=== PATIENT | female | born 1950 | race Caucasian/White ===

== ENCOUNTER 2017-05-17 12:27 | Emergency (ER) | payer OTHER, MEDICARE ==
[2017-05-17 12:52] VITALS: BP 128/75
[2017-05-17 13:45] LABS: APPEARANCE,URINE SLIGHTLY-CLOUDY; BILIRUBIN,URINE NEGATIVE (NEGATIVE); GLUCOSE, URINE NEGATIVE (NEGATIVE); KETONES,URINE NEGATIVE (NEGATIVE); LEUKOCYTE ESTERASE,URINE TRACE (NEGATIVE); NITRITE,URINE NEGATIVE (NEGATIVE); PROTEIN,URINE 30 mg/dL (NEGATIVE)
[2017-05-17 13:50] LABS: BACTERIA,URINE TRACE /HPF; RBC,URINE 0-1 /HPF
[2017-05-17 14:21] LABS: ANION GAP 13 (5-19); BLOOD UREA NITROGEN 16 mg/dL (7-20); CALCIUM 9.9 mg/dL (8.4-10.2); CARBON DIOXIDE 26 mmol/L (22-30); CHLORIDE 100 mmol/L (98-107); CREATININE RESULT 0.83 mg/dL (0.52-1.25); GLUCOSE 104 mg/dL (75-110); POTASSIUM 4.5 mmol/L (3.6-5.0)
--- NOTE | 2017-05-17 14:26 | RADIOLOGY REPORT (SQ) ---
EXAM DESCRIPTION: CT LTD RENAL STONE PROTOCOL ON COMPLETED DATE/TIME: 05/17/2017 2:05 pm REASON FOR STUDY: hematuria COMPARISON: None. TECHNIQUE: CT scan of the abdomen and pelvis performed without intravenous or oral contrast. Images reviewed with lung, soft tissue, and bone windows. Reconstructed coronal and sagittal MPR images revi ewed. All images stored on PACS. All CT scanners at this facility use dose modulation, iterative reconstruction, and/or weight based d osing when appropriate to reduce radiation dose to as low as reasonably achievable (ALARA). [facility]: Dose Right [facility]: CareDose [facility]: Dose Right [facility]: Teradose 4D [facility]: [employer] RADIATION DOSE: 14.53mGy. LIMITATIONS: None. FINDINGS: LOWER CHEST: No significant findings. No nodules or infiltrates. NON-CONTRASTED LIVER, SPLEEN, ADRENALS: Evaluation limited by lack of IV contrast. No identified sign ificant masses. PANCREAS: No masses. No peripancreatic inflammatory changes. GALLBLADDER: Large calcified gallstone. RIGHT KIDNEY AND URETER: No suspicious masses. Assessment limited by lack of IV contrast. No signif icant calcifications. No hydronephrosis or hydroureter. LEFT KIDNEY AND URETER: No suspicious masses. Assessment limited by lack of IV contrast. No signifi cant calcifications. No hydronephrosis or hydroureter. AORTA AND RETROPERITONEUM: No aneurysm. No retroperitoneal masses or adenopathy. BOWEL AND PERITONEAL CAVITY: Diffuse diverticular disease of the sigmoid colon. Pericolonic fat stra nding at the junction of the descending and sigmoid colons. Diverticulitis without perforation or ab scess. APPENDIX: Normal. PELVIS, BLADDER, AND ABDOMINAL WALL:No abnormal masses. No free fluid. Bladder normal. BONES: No significant findings. OTHER: No other significant finding. IMPRESSION: Diverticulitis of the sigmoid colon without perforation or abscess. Large gallstone. TECHNICAL DOCUMENTATION: JOB ID: [id number] Quality ID # [id number]: Final reports with documentation of one or more dose reduction techniques (e.g., Au tomated exposure control, adjustment of the mA and/or kV according to patient size, use of iterative reconstruction technique) 2010 [employer]- All Rights Reserved
[2017-05-17] MEDS ORDERED: METRONIDAZOLE 500 MG TABLET PO ONE (14:55)
[2017-05-17] MEDS ORDERED: CIPROFLOXACIN HCL 500 MG TABLET PO ONE (14:55)
[2017-05-17] MEDS ORDERED: ONDANSETRON ODT 4 MG TAB (6 TAB/DSPK) PO PRN (14:55)
--- NOTE | 2017-05-17 15:03 | ER Document Report ---
ED General - General Chief Complaint: Possible Kidney Stone Stated Complaint: POSSIBLE KIDNEY STONES Time Seen by Provider: 05/17/17 13:48 TRAVEL OUTSIDE OF THE [place] IN LAST 30 DAYS: No - HPI Patient complains to provider of: Lower abdominal pain Notes: Coming in for evaluation of lower abdominal pain. Patient states history of similar pain today is worse states she has been treated for UTIs in the past however later was told that she did not have UTI however pain was better with antibiotics. Denies any fever chills nausea vomiting diarrhea. Patient denies any recent travel denies any recent trauma. Patient states pain crampy. Colonoscopy last few years that was negative. Denies any dysuria. The patient was seen the local urgent care and sent to the ER for further evaluation for possible kidney stone. - Related Data Allergies/Adverse Reactions: No Known Allergies Allergy (Unverified 05/17/17 12:50) Past Medical History - Social History Smoking Status: Never Smoker Chew tobacco use (# tins/day): No Frequency of alcohol use: Social Drug Abuse: None Family History: Reviewed & Not Pertinent Patient has suicidal ideation: No Patient has homicidal ideation: No - Past Medical History Cardiac Medical History: Reports: Hx Heart Attack, Hx Hypercholesterolemia, Hx Hypertension Renal/ Medical History: Denies: Hx Peritoneal Dialysis Surgical Hx: Negative - Immunizations Hx Diphtheria, Pertussis, Tetanus Vaccination: Yes Review of Systems - Review of Systems Constitutional: No symptoms reported EENT: No symptoms reported Cardiovascular: No symptoms reported Respiratory: No symptoms reported Gastrointestinal: Abdominal pain Genitourinary: No symptoms reported Female Genitourinary: No symptoms reported Musculoskeletal: No symptoms reported Skin: No symptoms reported Hematologic/Lymphatic: No symptoms reported Neurological/Psychological: No symptoms reported Physical Exam - Vital signs Vitals: Temp Pulse Resp BP Pulse Ox 98.2 F 79 20 128/75 H 97 05/17/17 12:50 05/17/17 12:50 05/17/17 12:50 05/17/17 12:50 05/17/17 12:50 Interpretation: Normal - General General appearance: Appears well, Alert - HEENT Head: Normocephalic, Atraumatic Eyes: Normal Pupils: PERRL - Respiratory Respiratory status: No respiratory distress Chest status: Nontender Breath sounds: Normal Chest palpation: Normal - Cardiovascular Rhythm: Regular Heart sounds: Normal auscultation Murmur: No - Abdominal Inspection: Normal Distension: No distension Bowel sounds: Normal Tenderness: Nontender Organomegaly: No organomegaly - Back Back: Normal, Nontender - Extremities General upper extremity: Normal inspection, Nontender, Normal color, Normal ROM , Normal temperature General lower extremity: Normal inspection, Nontender, Normal color, Normal ROM , Normal temperature, Normal weight bearing. No: Dotty's sign - Neurological Neuro grossly intact: Yes Cognition: Normal Orientation: AAOx4 [place] Coma Scale Eye Opening: Spontaneous [place] Coma Scale Verbal: Oriented [place] Coma Scale Motor: Obeys Commands [place] Coma Scale Total: 15 Speech: Normal Motor strength normal: LUE, RUE, LLE, RLE Sensory: Normal - Psychological Associated symptoms: Normal affect, Normal mood - Skin Skin Temperature: Warm Skin Moisture: Dry Skin Color: Normal Course - Re-evaluation Re-evalutation: 05/17/17 20:40 Patient urinalysis showed small amount of blood and leukoesterase positive however patient CT scan shows no signs of kidney stones does show sigmoid diverticulitis. More likely this may be affecting her urinalysis in the past and there is sigmoid involvement with localized inflammation. Patient will be started on Cipro Flagyl given nausea medication. Patient states understanding of the findings and states need for follow-up. Patient will be discharged home - Vital Signs Vital signs: Temp Pulse Resp BP Pulse Ox 98.2 F 79 20 128/75 H 97 05/17/17 12:50 05/17/17 12:50 05/17/17 12:50 05/17/17 12:50 05/17/17 12:50 - Laboratory Result Diagrams: 05/17/17 13:56 Laboratory results interpreted by me: 05/17/17 12:55 Urine Protein 30 H Urine Blood MODERATE H Urine Urobilinogen 2.0 H Ur Leukocyte Esterase TRACE H Discharge - Discharge Clinical Impression: Diverticulitis Qualifiers: Diverticulitis site: large intestine Diverticulitis bleeding: without bleeding Diverticulitis complication: without perforation or abscess Qualified Code(s): K57.32 - Diverticulitis of large intestine without perforation or abscess without bleeding Condition: Good Disposition: HOME, SELF-CARE Instructions: Ciprofloxacin ([facility]), Low Residue Diet ([facility]), Diverticulitis ([facility]) , Metronidazole ([facility]) Additional Instructions: Please take antibiotics as prescribed. Take nausea medication as needed for nausea. Return to the ER symptoms worsen. Please follow-up with your physician in 7-10 days per Prescriptions: Ciprofloxacin HCl [Cipro 500 mg Tablet] 500 mg PO BID #20 tablet Metoclopramide HCl [Reglan] 5 mg PO Q6 #20 tablet Metronidazole [Flagyl 500 mg Tablet] 500 mg PO TID #30 tablet Forms: Return to Work Referrals: LINDA NAIK DO [Primary Care Provider] - Follow up as needed
== END 2017-05-17 15:20 | disposition home or self-care (01) ==
LOC: ER 12:27
DX: K57.32 Diverticulitis of large intestine without perforation or abscess without bleeding (principal); R10.30 Lower abdominal pain, unspecified; I25.2 Old myocardial infarction; I10 Essential (primary) hypertension; Z87.440 Personal history of urinary (tract) infections
CPT/HCPCS: 36415; 76380; 80048; 81001; 99284